=== PATIENT | male | born 1975 | race Caucasian/White ===

== ENCOUNTER 2024-11-11 10:09 | Emergency (ER) | payer MEDICAID ==
[~2024-11-11] VITALS: Ht 175.3 cm; Wt 87.0 kg
[2024-11-11 10:15] VITALS: O2SAT 99
[2024-11-11 10:33] VITALS: BP 112/59; PULSE 110; RESP 16; TEMP 37.1; O2SAT 99
[2024-11-11 12:20] LABS: INFLUENZA TYPE A Presumptive Negative (Pres. Neg.)
[2024-11-11 12:21] LABS: INFLUENZA TYPE B Presumptive Negative (Pres. Neg.)
[2024-11-11] MEDS ORDERED: BENZ200C52 MT (12:38)
[2024-11-11] MEDS ORDERED: IBUP-2028 MT (12:40)
== END 2024-11-11 12:54 | disposition home or self-care (01) ==
LOC: ER 10:09
DX: J06.9 Acute upper respiratory infection, unspecified (principal); I10 Essential (primary) hypertension; E11.9 Type 2 diabetes mellitus without complications; Z20.822 Contact with and (suspected) exposure to COVID-19
CPT/HCPCS: 71045; 87426; 87804; 99284